=== PATIENT | male | born 1965 | race African-American/Black ===

== ENCOUNTER 2016-04-23 21:11 | Emergency (ER) | payer MEDICAID ==
[~2016-04-23] VITALS: Ht 172.7 cm; Wt 108.9 kg
[2016-04-23 21:30] VITALS: BP 124/59
== END 2016-04-24 02:53 | disposition left against medical advice (07) ==
LOC: ER 21:17
DX: M79.605 Pain in left leg (principal); Z53.21 Procedure and treatment not carried out due to patient leaving prior to being seen by health care provider; V23.4XXA Motorcycle driver injured in collision with car, pick-up truck or van in traffic accident, initial encounter; Y93.89 Activity, other specified; Y99.8 Other external cause status; Y92.89 Other specified places as the place of occurrence of the external cause
CPT/HCPCS: 73590

== ENCOUNTER 2018-02-07 16:13 | Emergency (ER) | payer MEDICAID ==
[~2018-02-07] VITALS: Ht 172.7 cm; Wt 110.7 kg
[2018-02-07 18:13] VITALS: BP 169/61
[2018-02-07] MEDS ORDERED: KETOROLAC TROMETH 60MG/2ML VIAL IM ONE (18:30)
[2018-02-07] MEDS ORDERED: DEXAMETHASONE SOD PHOS 10MG/1ML VIAL INJ IM ONE (18:30)
== END 2018-02-07 18:43 | disposition home or self-care (01) ==
LOC: ER 16:17
DX: M13.821 Other specified arthritis, right elbow (principal)
CPT/HCPCS: 73080; 96372; 99284; J1100; J1885

== ENCOUNTER 2020-10-24 16:57 | Emergency (ER) | payer MEDICAID ==
[~2020-10-24] VITALS: Ht 172.7 cm; Wt 108.9 kg
[2020-10-24 17:10] VITALS: BP 145/71
== END 2020-10-24 18:43 | disposition left against medical advice (07) ==
LOC: EDBD 16:57 → ER 16:57
DX: R06.02 Shortness of breath (principal); Z53.21 Procedure and treatment not carried out due to patient leaving prior to being seen by health care provider
CPT/HCPCS: 71045; 93005

== ENCOUNTER 2023-12-11 12:58 | Emergency (ER) | payer SELFPAY ==
[~2023-12-11] VITALS: Ht 172.7 cm; Wt 103.4 kg
[2023-12-11 14:48] VITALS: BP 139/69; PULSE 79; RESP 16; TEMP 97.5; O2SAT 100
[2023-12-11] MEDS: cefTRIAXone SOD 1,000 MG VL IM ONE (15:08)
[2023-12-11 15:49] LABS: Urine Bacteria None Seen /hpf (None Seen)
[2023-12-11 16:03] LABS: Urine Blood Negative /uL (Negative); Urine Clarity Clear (Clear); Urine Color Light-Yellow (Yellow); Urine Protein, UAD Negative (Negative); Urine Specific Gravity 1.011 (1.001-1.035); Urine Urobilinogen 2 mg/dL (Negative); Urine WBC <1 /hpf (0 - 3)
[2023-12-11] MEDS ORDERED: DOXY-286 PO (16:40)
[2023-12-11] MEDS ORDERED: MET500T PO (16:40)
[2023-12-12 07:06] LABS: RPR Non Reactive (Non Reactive)
[2023-12-12 12:07] LABS: Chlamydia Trachomatis, NAA Negative (Negative); Neisseria gonorrhoeae, NAA Negative (Negative)
== END 2023-12-11 16:46 | disposition home or self-care (01) ==
LOC: ER 12:58
DX: A59.9 Trichomoniasis, unspecified (principal); Z79.899 Other long term (current) drug therapy
CPT/HCPCS: 81001; 86592; 86703; 87491; 87591; 96372; 99283; J0696

== ENCOUNTER 2024-07-22 21:16 | Emergency (ER) | payer BC, MEDICAID ==
[~2024-07-22] VITALS: Ht 170.2 cm; Wt 106.6 kg
[~2024-07-22 21:16] MED LIST: DOXY-286 PO; MET500T PO
[2024-07-22 23:32] LABS: Basophils # (auto) 0.3 10 ^3/uL (0-0.2); Eosinophils # (auto) 0.7 10 ^3/uL (0-0.8); Eosinophils % (auto) 6.8 % (0.0-7.0); Hematocrit 40.2 % (41.0-53.0); Hemoglobin 14.2 g/dL (13.5-17.5); Lymphocytes # (auto) 3.8 10 ^3/uL (0.4-5.4); Lymphocytes % (auto) 37.4 % (10.0-50.0); Mean Corpuscular Hemoglobin 31.6 pg (28.0-32.0); Mean Corpuscular Hgb Conc. 35.4 g/dL (32.0-36.0); Mean Corpuscular Volume 89.4 fL (80.0-100.0); Monocytes # (auto) 1.3 10 ^3/uL (0-1.3); Monocytes % (auto) 13.1 % (0.0-12.0); Neutrophils % (auto) 39.7 % (37.0-80.0); Nucleated Red Blood Cells % 2.4 %; Platelet Count (auto) 311 10^3/uL (140-450); Red Blood Cells 4.49 10^6/uL (4.5-5.90); Red Cell Distribution Width 16.5 % (11.8-14.3); White Blood Cell 10.1 10^3/uL (4.4-10.8)
[2024-07-22 23:35] LABS: Chloride 107 mmol/L (98-107); Potassium 3.7 mmol/L (3.5-5.1); Sodium 142 mmol/L (136-145)
[2024-07-22 23:36] LABS: Anion Gap 6 (5-15); Calcium 9.8 mg/dL (8.7-10.4); Carbon Dioxide 29 mmol/L (20-31)
[2024-07-22 23:41] LABS: BUN/Creatinine Ratio 9.4 (10.0-20.0); Blood Urea Nitrogen 12 mg/dL (9-23); Glucose 99 mg/dL (74-106)
--- NOTE | 2024-07-23 00:04 | ED.PDOC ---
History of Present Illness HPI Comments 59 y/o obese M, with a history of HTN and Sickle Cell Disease, presents with c/o generalized body and head pain, today. Patient is a poor historian and suspects on experiencing another Sickle Cell "flare up." He endorses on no current medication use for managing his condition and being given Morphine when ev aluated for similar symptoms with previous hospital visit in . Patient denies any chest pain, shortness of breath, fatigue, weakness, or other associated symptoms at this time. Chief Complaint: Body Pain Time Seen by MD: 23:00 Primary Care Provider: ALICIA Reviewed Notes: Nurses Notes, Medications, Allergies Allergies: Coded Allergies: NO KNOWN ALLERGIES (Unverified , 04/23/16) Home Meds Active Scripts Doxycycline Hyclate (DOXYCYCLINE HYCLATE) 100 Mg Tab, 1 TAB PO BID for 7 Days, #14 TAB 0 Refills Prov:ANGELA BARROS [employer] 12/11/23 Metronidazole (Metronidazole) 500 Mg Tab, 2 GRAMS PO ONCE for 1 Day, #4 TAB 0 Refills Prov:ANGELA BARROS [employer] 12/11/23 Information Source: Patient Mode of Arrival: Ambulatory Severity: Moderate Timing: Hours Duration: Since onset Prehospital treatment: None Past Medical History PAST MEDICAL HISTORY: HTN Past Medical History (Other): Sickle cell disease Surgical History: Denies all surgeries Family History Family History: Unknown Social History Smoker: Non-Smoker Alcohol: Denies ETOH Use Drugs: Denies Drug Use Lives In: Home All Other Systems: Reviewed and Negative (Comprehensive systems review obtained and negative except for what is stated in the HPI.) Physical Exam General Appearance: No Apparent Distress, Obese, Other (appears uncomfortable ) HEENT: Normal ENT Inspection, Pharynx Normal, TMs Normal Neck: Full Range of Motion, Non-Tender, Normal, Normal Inspection Respiratory: Chest Non-Tender, Lungs Clear, No Accessory Muscle Use, No Respiratory Distress, Normal Breath Sounds Cardiovascular: No Edema, No JVD, No Murmur, No Gallop, Normal Peripheral Pulses, Regular Rate/Rhythm Breast Exam: Deferred Gastrointestinal: No Organomegaly, Non Tender, No Pulsatile Mass, Normal Bowel Sounds, Soft Genitalia: Deferred Pelvic: Deferred Rectal: Deferred Extremities: No calf tenderness, Normal capillary refill, Normal inspection, Normal range of motion, Non-tender, No pedal edema Musculoskeletal : Apperance: Normal Neurologic: Alert, supervisor lime II-XII nml as Tested, No Motor Deficits, Normal Affect, Normal Mood, No Sensory Deficits Cerebellar Function: Normal Reflexes: Normal Skin: Dry, Normal Color, Warm Lymphatic: No Adenopathy Was a procedure done? Was a procedure done?: No Differential Dx Considerations may include: history of sickle cell disease, sickle cell anemia with pain, dehydration, electrolyte imbalance, viral syndrome, among others X-Ray, Labs, Meds, VS Vital Signs Date Time Temp Pulse Resp B/P (MAP) Pulse Ox O2 Delivery O2 Flow Rate FiO2 07/23/24 01:53 88 18 97 Room Air* 0 21 07/23/24 01:51 88 18 147/60 07/23/24 01:50 62 21 96 Room Air 07/23/24 01:50 98.5 62 21 147/60 (89) 96 98.5 07/22/24 21:59 99.1 80 20 141/78 (99) 96 99.1 Lab Test 07/22/24 23:10 Range/Units White Blood Count 10.1 4.4-10.8 10^3/uL Red Blood Count 4.49 L 4.5-5.90 10^6/uL Hemoglobin 14.2 13.5-17.5 g/dL Hematocrit 40.2 L 41.0-53.0 % Mean Corpuscular Volume 89.4 80.0-100.0 fL Mean Corpuscular Hemoglobin 31.6 28.0-32.0 pg Mean Corpuscular Hemoglobin Concent 35.4 32.0-36.0 g/dL Red Cell Distribution Width 16.5 H 11.8-14.3 % Platelet Count 311 140-450 10^3/uL Mean Platelet Volume 8.4 6.9-10.8 fL Neutrophils (%) (Auto) 39.7 37.0-80.0 % Lymphocytes (%) (Auto) 37.4 10.0-50.0 % Monocytes (%) (Auto) 13.1 H 0.0-12.0 % Eosinophils (%) (Auto) 6.8 0.0-7.0 % Basophils (%) (Auto) 3.0 H 0.0-2.0 % Neutrophils # (Auto) 4.0 1.6-8.6 10 ^3/uL Lymphocytes # (Auto) 3.8 0.4-5.4 10 ^3/uL Monocytes # (Auto) 1.3 0-1.3 10 ^3/uL Eosinophils # (Auto) 0.7 0-0.8 10 ^3/uL Basophils # (Auto) 0.3 H 0-0.2 10 ^3/uL Nucleated Red Blood Cells 2.4 % Platelet Estimate Adequate Sickle Cells Moderate Target Cells Few Reticulocyte Count (auto) 4.29 H 0.5-1.5 % Sodium Level 142 136-145 mmol/L Potassium Level 3.7 3.5-5.1 mmol/L Chloride Level 107 98-107 mmol/L Carbon Dioxide Level 29 20-31 mmol/L Anion Gap 6 5-15 Blood Urea Nitrogen 12 9-23 mg/dL Creatinine 1.28 0.700-1.30 mg/dL Glomerular Filtration Rate Calc 65 >90 mL/min BUN/Creatinine Ratio 9.4 L 10.0-20.0 Serum Glucose 99 74-106 mg/dL Calcium Level 9.8 8.7-10.4 mg/dL Current Medications Medications (Trade) Dose Ordered Sig/Yesica Route Start Time Stop Time Status Last Admin Sodium Chloride 1,000 ml @ 1,000 mls/hr Q1H ONCE IV 07/22/24 23:15 07/23/24 00:14 DC 07/23/24 01:45 Ondansetron HCl (Zofran) 4 mg ONCE ONCE IV 07/22/24 23:15 07/22/24 23:16 DC 07/23/24 01:52 Ketorolac Tromethamine (Toradol Injection) 15 mg ONCE ONCE IV 07/22/24 23:15 07/22/24 23:16 DC 07/23/24 01:52 Morphine Sulfate 4 mg ONCE ONCE IV 07/22/24 23:45 07/22/24 23:46 DC 07/23/24 01:51 Time of 1ST Reevaluation: 23:30 Reevaluation 1ST: Unchanged Patient Education/Counseling: Diagnosis, Treatment Family Education/Counseling: No Family Present Additional Information Previous visits: December 11, 2023 encounter for trichomoniasis The following tests were ordered, and results were reviewed by me: CXR, RBC morphology, CBC, BMP, reticulocyte count Additional Information was gathered from interviewing the following independent historians: N/A I reviewed and agreed with the following test results read by other providers: CXR I discussed treatment and results with medical personnel and: Patient Departure 1 Departure Time of Disposition: 02:05 (Patient with a likely sickle cell flare. Patient reports feeling better. Patient is offered admission however patient decided to go home. We will discharge patient home with outpatient follow up) Impression: Primary Impression: Sickle cell anemia with crisis Disposition: HOME / SELF CARE / HOMELESS Condition: Stable Additional Instructions: You likely had a sickle cell crisis. It is important to stay well rested and well hydrated. For pain you can take the followinam: Ibuprofen 400mg with food Noon: Acetaminophen 1000mg 4pm: Ibuprofen 400mg with food 8pm: Acetaminophen 1000mg You should follow up with your regular doctor within one week to ensure you are doing better. If your symptoms worsen or you have any other concerns then please return to the ER. Discharged With: Self Critical Care Note Critical Care Time?: No Stability Stability form required: No Heart Score Heart Score: Heart Score Response (Comments) Value History N/A 0 EKG N/A 0 Age N/A 0 Risk Factors N/A 0 Troponin N/A 0 Total 0 I personally scribed for BRENDA HANEY MD ([email or web address]) on 07/23/24 at 00:04. Electronically submitted by Ryley Mendez ([email or web address]). I personally scribed for BRENDA HANEY MD ([email or web address]) on 07/23/24 at 00:05. Electronically submitted by Ryley Mendez ([email or web address]). BRENDA HANEY MD Jul 23, 2024 00:04
--- NOTE | 2024-07-23 00:19 | DVH ---
CHEST RADIOGRAPH Indication: pain, hx of sickle cell Technique: Single frontal view of the chest was obtained COMPARISON: CHEST PORTABLE on DOS: 10/24/20 FINDINGS: Lines and Tubes: None Lungs: Clear Pleura: No effusion. No pneumothorax. Cardiomediastinal contours: Unremarkable Bones: Unremarkable IMPRESSION: No abnormality demonstrated. No significant change compared to the prior chest x-ray from September 2020.
[2024-07-23 00:49] LABS: Platelet Estimate Adequate; Sickle Cells MODERATE; Target Cell FEW
[2024-07-23] MEDS: SODIUM CHLORIDE 0.9% 1,000 ML IV ONE (01:45)
[2024-07-23 01:50] VITALS: TEMP 98.5
[2024-07-23 01:51] VITALS: BP 147/60
[2024-07-23] MEDS: MORPHINE SULFATE 4 MG/ML SYR/VIAL IV ONE (01:51)
[2024-07-23] MEDS: ONDANSETRON HCL 4 MG/2 ML VIAL IV ONE (01:52)
[2024-07-23] MEDS: KETOROLAC TROMETH 30 MG/ML 1ML VIAL IV ONE (01:52)
[2024-07-23 01:53] VITALS: PULSE 88; RESP 18; O2SAT 97
[2024-07-23] MEDS ORDERED: METOCLOPRAMIDE HCL 5MG/ml INJ 2ml VIAL IV ONE (02:15)
[2024-07-23] MEDS ORDERED: ACETAMINOPHEN 325 MG TAB PO ONE (02:15)
== END 2024-07-23 02:30 | disposition home or self-care (01) ==
LOC: ER 21:16
DX: D57.00 Hb-SS disease with crisis, unspecified (principal); I10 Essential (primary) hypertension; E66.9 Obesity, unspecified; Z79.899 Other long term (current) drug therapy
CPT/HCPCS: 36415; 71045; 80048; 85025; 85045; 96361; 96374; 96375; 99284; J1885; J2270; J2405; J7030